=== PATIENT | male | born 1960 | race Caucasian/White ===

== ENCOUNTER 2019-03-13 09:20 | Inpatient (IN) | payer MEDICARE, OTHER ==
[~2019-03-13] VITALS: Ht 188 cm; Wt 122.4 kg
[~2019-03-13 09:20] MED LIST: ARIP5TAB13 PO; BACITRACIN 50,000 UNIT ONE; BUPIVACAINE/PF 0.25% ONE; BUPR150T13 PO; CYCL-259 PO; DIAZ10TA PO; DIAZ5TAB PO; EPINEPHRINE 1 MG/ML, 1ML ONE; FENO134C PO; HYDR-3240 PO; HYDR2TAB29 PO; INSU100V8 SQ; LISI-170 PO; METF10002 PO; NOVOLOG; SERT100T32 PO; SIMV40TA3 PO; SITA100T PO; THROMBIN (RECOMBINANT) 5,000 UNIT VIAL TP ONE; VANCOMYCIN 1,000 MG ONE; ZOLP10TA PO
[2019-03-13] MEDS ORDERED: HEPARIN 1,000 UNITS/ML, 30ML ONE (09:53)
[2019-03-13 10:22] VITALS: BP 116/77
[2019-03-13] MEDS ORDERED: DAPA1TAB3 PO (10:22)
[2019-03-13] MEDS ORDERED: INSU100V35 SQ (10:22)
[2019-03-13] MEDS ORDERED: LISI5TAB7 PO (10:22)
[2019-03-13] MEDS ORDERED: PIOG30TA4 PO (10:22)
[2019-03-13] MEDS ORDERED: OXYC-302 PO (10:22)
[2019-03-13] MEDS ORDERED: ZOLP12.52 PO (10:22)
[2019-03-13] MEDS ORDERED: OXYcodone/APAP 5/325MG TABLET PO ONE (11:00)
[2019-03-13] MEDS ORDERED: BUPIVACAINE/PF 0.25% ONE (11:56)
[2019-03-13] MEDS ORDERED: MIDAZOLAM 1 MG/ML, 2ML ONE (12:56)
[2019-03-13] MEDS ORDERED: FENTANYL PF 250 MCG/5ML ONE ×2 (12:56→16:05)
[2019-03-13] MEDS ORDERED: PROPOFOL 100 ML ONE (12:56)
[2019-03-13] MEDS ORDERED: CEFAZOLIN 1,000 MG ONE ×2 (14:06)
[2019-03-13] MEDS ORDERED: OXYcodone 5 MG/5 ML ORAL.SOL UDC PO PRN (14:30)
[2019-03-13] MEDS ORDERED: MEPERIDINE/PF 25MG/ML,1ML IVPush PRN (14:30)
[2019-03-13] MEDS ORDERED: HYDROmorphone 2 MG/ML, 1ML IVPush PRN (14:30)
[2019-03-13] MEDS ORDERED: ONDANSETRON 2MG/ML, 2ML IV PRN (14:30)
[2019-03-13] MEDS ORDERED: PROMETHAZINE 25 MG/ML, 1ML IV PRN (14:30)
[2019-03-13] MEDS ORDERED: DIAZEPAM 5 MG/ML, 2ML IVPush PRN (14:30)
[2019-03-13] MEDS ORDERED: LABETALOL 5MG/ML, 20ML IV PRN (14:30)
[2019-03-13] MEDS ORDERED: hydrALAzine 20 MG/ML, 1ML IV PRN (14:30)
[2019-03-13] MEDS ORDERED: ACETAMINOPHEN 325 MG TABLET PO PRN (14:30)
[2019-03-13] MEDS ORDERED: ROCURONIUM 10MG/ML,5ML ONE (16:01)
[2019-03-13] MEDS ORDERED: DEXAMETHASONE 4 MG/ML, 1ML ONE (16:01)
[2019-03-13] MEDS ORDERED: ONDANSETRON 2MG/ML, 2ML ONE (16:01)
[2019-03-13] MEDS ORDERED: PROPOFOL 10 MG/ML, 20ML ONE (16:01)
[2019-03-13] MEDS ORDERED: METOPROLOL 1 MG/ML, 5ML ONE (16:17)
[2019-03-13] MEDS ORDERED: ZOLPIDEM TARTRATE 12.5 MG PO PRN (16:30)
[2019-03-13] MEDS ORDERED: DIAZEPAM 5 MG TABLET PO PRN (16:30)
[2019-03-13] MEDS ORDERED: ONDANSETRON 2MG/ML, 2ML IVPush PRN (16:30)
[2019-03-13] MEDS ORDERED: TIZANIDINE 4MG TABLET PO PRN (16:30)
[2019-03-13] MEDS ORDERED: INSULIN REGULAR 100 UNITS/ML, 3ML VIAL SQ-INSULIN PRN (16:30)
[2019-03-13] MEDS ORDERED: PHARMACY INSTRUCTION MC PRN (16:30)
[2019-03-13] MEDS ORDERED: PHARMACY MAY ADJ FOR RENAL FX MC PRN (16:30)
[2019-03-13] MEDS ORDERED: BISACODYL 10 MG SUPP PR PRN (16:30)
[2019-03-13] MEDS ORDERED: HYDROcodone/APAP 10/325 MG TABLET PO PRN (16:30)
[2019-03-13] MEDS ORDERED: PROMETHAZINE 25 MG/ML, 1ML IM PRN (16:30)
[2019-03-13] MEDS ORDERED: MAGNESIUM HYDROXIDE 8%, 30ML UDC PO PRN (16:30)
[2019-03-13] MEDS ORDERED: HYDROmorphone PCA 30 MG/30 ML IV PRN (16:30)
[2019-03-13] MEDS ORDERED: MEPERIDINE/PF 100 MG/ML IM PRN (16:30)
[2019-03-13] MEDS ORDERED: DIPHENHYDRAMINE 50 MG/ML, 1ML IVPush PRN (16:30)
[2019-03-13] MEDS ORDERED: HYDROmorphone 1 MG/ML, 1ML INJ IVPush PRN (16:30)
[2019-03-13] MEDS ORDERED: OXYcodone 5 MG/5 ML ORAL.SOL UDC ONE (17:10)
[2019-03-13] MEDS: FENTANYL PF 100 MCG/2ML IV PRN ×2 (17:15→17:25)
[2019-03-13] MEDS ORDERED: FENTANYL PF 100 MCG/2ML ONE (17:20)
[2019-03-13] MEDS ORDERED: HYDROmorphone 2 MG/ML, 1ML ONE (18:53)
[2019-03-13] MEDS: NS + 20MEQ KCL 1,000 ML IV SCH (19:22)
[2019-03-13 20:06] VITALS: BP 126/80
[2019-03-13] MEDS ORDERED: metFORMIN 500 MG TABLET PO SCH (21:00)
[2019-03-13] MEDS: SODIUM CHLORIDE FLUSH 10ML SYR IVF SCH (21:00)
[2019-03-13] MEDS: ZOLPIDEM 10MG TABLET PO SCH (21:00)
[2019-03-13] MEDS: INSULIN DEGLUDEC 86 UNIT HOMEINJ SCH (21:00)
[2019-03-13] MEDS: SIMVASTATIN 40 MG TABLET PO SCH (21:00)
[2019-03-13] MEDS: CEFAZOLIN PMX 1GM/50ML 50 ML IVPB SCH (22:56)
[2019-03-14 00:24] VITALS: BP 114/70
[2019-03-14] MEDS: NS + 20MEQ KCL 1,000 ML IV SCH ×3 (02:30→21:55)
[2019-03-14 04:14] VITALS: BP 150/92
[2019-03-14 05:36] LABS: BASOPHILS # (AUTO) 0.03 x10^3/uL (0-0.1); BASOPHILS % (AUTO) 0 % (0-1); EOSINOPHILS # (AUTO) 0.01 x10^3/uL (0-0.4); EOSINOPHILS % (AUTO) 0 % (1-7); LYMPHOCYTES # (AUTO) 1.69 x10^3/uL (1-3.4); LYMPHOCYTES % (AUTO) 13 % (22-44); MD NO; MEAN CORPUSCULAR HEMOGLOBIN 30.1 pg (27.5-34.5); MEAN CORPUSCULAR HGB CONC 33.7 g/dL (33.2-36.2); MEAN CORPUSCULAR VOLUME 89.2 fL (81-97); MEAN PLATELET VOLUME 8.5 fL (7.4-10.4); MONOCYTES # (AUTO) 0.59 x10^3/uL (0.2-0.8); MONOCYTES % (AUTO) 4 % (2-9); NEUTROPHILS # (AUTO) 11.16 x10^3/uL (1.8-6.8); NEUTROPHILS % (AUTO) 83 % (42-75); PLATELET COUNT 205 x10^3/uL (130-400); RED BLOOD COUNT 4.32 x10^6/uL (4.38-5.82); RED CELL DISTRIBUTION WIDTH 14.2 % (9.4-14.8)
[2019-03-14 05:44] LABS: ANION GAP 5 mmol/L (5-15); CHLORIDE 102 mmol/L (98-107)
[2019-03-14 05:47] LABS: CALCIUM 8.5 mg/dL (8.5-10.1); CREATININE 1.05 mg/dL (0.7-1.3)
[2019-03-14] MEDS: CEFAZOLIN PMX 1GM/50ML 50 ML IVPB SCH (06:25)
[2019-03-14 07:59] VITALS: BP 107/66
[2019-03-14] MEDS ORDERED: HYDROmorphone 2 MG/ML, 1ML IVPush PRN (08:30)
[2019-03-14] MEDS: SERTRALINE 100MG TABLET PO SCH (09:00)
[2019-03-14] MEDS ORDERED: PIOGLITAZONE 15 MG TABLET PO SCH (09:00)
[2019-03-14] MEDS: SODIUM CHLORIDE FLUSH 10ML SYR IVF SCH ×2 (09:00→21:00)
[2019-03-14] MEDS: SENNA/DOCUSATE TABLET PO SCH (09:00)
[2019-03-14] MEDS: LISINOPRIL 5 MG TABLET PO SCH (09:00)
[2019-03-14] MEDS: NICOTINE 7 MG/24 HR PATCH.TD24 TD SCH (09:30)
[2019-03-14] MEDS: OXYcodone/APAP 10/325MG TABLET PO PRN ×5 (09:30→21:58)
[2019-03-14 13:22] VITALS: BP 103/65
[2019-03-14 19:40] VITALS: BP 106/64
[2019-03-14] MEDS: ZOLPIDEM 10MG TABLET PO SCH (21:00)
[2019-03-14] MEDS: INSULIN DEGLUDEC 86 UNIT HOMEINJ SCH (21:00)
[2019-03-14] MEDS: SIMVASTATIN 40 MG TABLET PO SCH (21:00)
[2019-03-15] MEDS: OXYcodone/APAP 10/325MG TABLET PO PRN ×3 (01:47→10:01)
[2019-03-15 01:50] VITALS: BP 100/68
[2019-03-15 05:42] LABS: ANION GAP 6 mmol/L (5-15); CALCIUM 8.2 mg/dL (8.5-10.1); CHLORIDE 102 mmol/L (98-107)
[2019-03-15 06:12] LABS: BASOPHILS # (AUTO) 0.02 x10^3/uL (0-0.1); BASOPHILS % (AUTO) 0 % (0-1); EOSINOPHILS # (AUTO) 0.18 x10^3/uL (0-0.4); EOSINOPHILS % (AUTO) 2 % (1-7); LYMPHOCYTES # (AUTO) 2.36 x10^3/uL (1-3.4); LYMPHOCYTES % (AUTO) 28 % (22-44); MD NO; MEAN CORPUSCULAR HEMOGLOBIN 29.3 pg (27.5-34.5); MEAN CORPUSCULAR HGB CONC 33.1 g/dL (33.2-36.2); MEAN CORPUSCULAR VOLUME 88.4 fL (81-97); MEAN PLATELET VOLUME 8.5 fL (7.4-10.4); MONOCYTES # (AUTO) 0.67 x10^3/uL (0.2-0.8); MONOCYTES % (AUTO) 8 % (2-9); NEUTROPHILS # (AUTO) 5.26 x10^3/uL (1.8-6.8); NEUTROPHILS % (AUTO) 62 % (42-75); PLATELET COUNT 177 x10^3/uL (130-400); RED BLOOD COUNT 4.17 x10^6/uL (4.38-5.82); RED CELL DISTRIBUTION WIDTH 14.6 % (9.4-14.8)
[2019-03-15 07:26] VITALS: BP 114/67
[2019-03-15] MEDS: NS + 20MEQ KCL 1,000 ML IV SCH (07:34)
[2019-03-15] MEDS ORDERED: OXYC-432 PO (08:36)
[2019-03-15] MEDS ORDERED: TIZA2TAB2 PO (08:36)
[2019-03-15] MEDS: SERTRALINE 100MG TABLET PO SCH (09:00)
[2019-03-15] MEDS: LISINOPRIL 5 MG TABLET PO SCH (09:00)
[2019-03-15] MEDS: SENNA/DOCUSATE TABLET PO SCH (09:07)
[2019-03-15] MEDS: NICOTINE 7 MG/24 HR PATCH.TD24 TD SCH (09:08)
[2019-03-15] MEDS: SODIUM CHLORIDE FLUSH 10ML SYR IVF SCH (09:09)
== END 2019-03-15 11:24 | disposition home or self-care (01) | DRG 460 ==
LOC: ORIP 09:20 → 4NE 09:29 → DCLOUNGE 03-15 11:10
PROVIDERS: ADMIT Neurological Surgery; ATTEND Neurological Surgery
PROC: 01NB0ZZ Release Lumbar Nerve, Open Approach (ICD-10-PCS; 2019-03-13)
PROC: 01NR0ZZ Release Sacral Nerve, Open Approach (ICD-10-PCS; 2019-03-13)
PROC: 0SJ00ZZ Inspection of Lumbar Vertebral Joint, Open Approach (ICD-10-PCS; 2019-03-13)
PROC: 3E0U0GB Introduction of Recombinant Bone Morphogenetic Protein into Joints, Open Approach (ICD-10-PCS; 2019-03-13)
PROC: 0SG30AJ Fusion of Lumbosacral Joint with Interbody Fusion Device, Posterior Approach, Anterior Column, Open Approach (ICD-10-PCS; principal; 2019-03-13 13:00)
DX: M51.37 Other intervertebral disc degeneration, lumbosacral region (principal); M48.061 Spinal stenosis, lumbar region without neurogenic claudication; M54.17 Radiculopathy, lumbosacral region; F17.210 Nicotine dependence, cigarettes, uncomplicated; Z98.1 Arthrodesis status; I10 Essential (primary) hypertension; E78.00 Pure hypercholesterolemia, unspecified; F41.9 Anxiety disorder, unspecified; F32.9 Major depressive disorder, single episode, unspecified; M43.26 Fusion of spine, lumbar region; M19.90 Unspecified osteoarthritis, unspecified site; E11.9 Type 2 diabetes mellitus without complications; M79.7 Fibromyalgia; Z83.3 Family history of diabetes mellitus; Z82.61 Family history of arthritis; Z82.49 Family history of ischemic heart disease and other diseases of the circulatory system; Z79.899 Other long term (current) drug therapy; Z79.84 Long term (current) use of oral hypoglycemic drugs
CPT/HCPCS: 36415; 72100; 80048; 82962; 85025; 95938; 95941; C1713; C1776; G0378; J0171; J0690; J1100; J1170; J1644; J2250; J2405; J2704; J3010; J3370; J3480; J3490; C1762